=== PATIENT | male | born 1950 | race Caucasian/White ===

== ENCOUNTER 2016-12-25 16:50 | Emergency (ER) | payer SELFPAY ==
[~2016-12-25] VITALS: Ht 167.6 cm; Wt 75.0 kg
[2016-12-25 20:21] VITALS: BP 120/84
== END 2016-12-25 20:28 | disposition home or self-care (01) ==
LOC: EMS 16:52
DX: S52.501A Unspecified fracture of the lower end of right radius, initial encounter for closed fracture (principal); Z59.0 Homelessness; X58.XXXA Exposure to other specified factors, initial encounter; Y93.89 Activity, other specified; Y92.89 Other specified places as the place of occurrence of the external cause; Y99.8 Other external cause status
CPT/HCPCS: 99284